=== PATIENT | male | born 1970 | race Two or more races ===

== ENCOUNTER 2017-02-17 14:49 | Emergency (ER) | payer SELFPAY ==
[2017-02-17 15:23] VITALS: BP 87/57
--- NOTE | 2017-02-17 15:56 | CR ---
Clinical history: 46-year-old male left chest wall pain and cough. Interpretation: PA lateral chest films demonstrate reasonable inspiratory effort this obese patient. Ivelisse thorax unremarkable. Normal cardiac silhouette without cephalization of flow, signs of alveolar edema or dependent effusio n. No lung mass, hilar lymphadenopathy or focal lobar pneumonia. No atelectasis/collapse. No pneumothorax. CONCLUSION: No acute cardiopulmonary abnormality.
[2017-02-17 16:10] LABS: CHLORIDE,CL 104 mmol/L (101-111); SODIUM,NA 138 mmol/L (135-145)
--- NOTE | 2017-02-17 16:40 | EDM.PDOC ---
ED HPI GENERAL MEDICAL PROBLEM - General Chief Complaint: Back Pain or Injury Stated Complaint: CHEST,BACK,SEVERE PAINS, HARD TO BREATH, [id number] Time Seen by Provider: 02/17/17 16:38 Source of Information: Reports: Patient, RN, RN Notes Reviewed History Limitations: Reports: No Limitations - History of Present Illness Onset: Today, Sudden Location: Reports: Chest, Back Quality: Reports: Sharp Severity: Moderate Improves with: Reports: None Worsens with: Reports: Movement Associated Symptoms: Reports: No Other Symptoms Left Back Pain Score (Numeric/FACES): 5 - Related Data Allergies Allergy/AdvReac Type Severity Reaction Status Date / Time Penicillins Allergy Cannot Verified 02/17/17 15:15 Remember Home Meds: Home Meds . [No Known Home Meds] 02/17/17 [History] Past Medical History - Past Health History Medical/Surgical History: Denies Medical/Surgical History Social & Family History - Tobacco Use Smoking Status *Q: Current Every Day Smoker Years of Tobacco use: 30 Packs/Tins Daily: 0.5 Used Tobacco, but Quit: No - Caffeine Use Caffeine Use: Reports: Coffee - Recreational Drug Use Recreational Drug Use: Yes Drug Use in Last 12 Months: No ED ROS GENERAL - Review of Systems Review Of Systems: ROS reveals no pertinent complaints other than HPI. ED EXAM, GENERAL - Physical Exam Exam: See Below Exam Limited By: No Limitations General Appearance: Alert, WD/WN, No Apparent Distress Eye Exam: Bilateral Eye: Normal Inspection Ears: Normal External Exam, Normal Canal, Hearing Grossly Normal, Normal TMs Nose: Normal Inspection, Normal Mucosa, No Blood Throat/Mouth: Normal Inspection, Normal Lips, Normal Teeth, Normal Gums, Normal Oropharynx, Normal Voice, No Airway Compromise Head: Atraumatic, Normocephalic Neck: Normal Inspection, Supple, Non-Tender, Full Range of Motion Respiratory/Chest: No Respiratory Distress, Lungs Clear, Normal Breath Sounds, No Accessory Muscle Use, Chest Non-Tender Cardiovascular: Normal Peripheral Pulses, Regular Rate, Rhythm, No Edema, No Gallop, No JVD, No Murmur, No Rub Peripheral Pulses: 2+: Radial (L), Radial (R) GI/Abdominal: Normal Bowel Sounds, Soft, Non-Tender, No Organomegaly, No Distention, No Abnormal Bruit, No Mass (Male) Exam: Deferred Rectal (Males) Exam: Deferred Back Exam: Normal Inspection, Decreased Range of Motion, Paraspinal Tenderness ( thoracic) Extremities: Normal Inspection, Normal Range of Motion, Non-Tender, Normal Capillary Refill, No Pedal Edema Neurological: Alert, Oriented, Normal Cognition, Normal Gait, No Motor/Sensory Deficits Psychiatric: Normal Affect, Normal Mood Skin Exam: Warm, Dry, Intact, Normal Color, No Rash Lymphatic: No Adenopathy Course - Vital Signs Last Recorded V/S: Last Vital Signs Temp 98.6 F 02/17/17 15:19 Pulse 64 02/17/17 15:19 Resp 20 02/17/17 15:19 BP 87/57 L 02/17/17 15:19 Pulse Ox 10 L 02/17/17 15:19 - Orders/Labs/Meds Labs: Laboratory Tests 02/17/17 02/17/17 02/17/17 Range/Units 15:45 15:45 15:45 WBC 7.4 (5.0-10.0) 10^3/uL RBC 5.35 (4.6-6.2) 10^6/uL Hgb 16.1 (14.0-18.0) g/dL Hct 47.3 (40.0-54.0) % MCV 88.4 (80-100) fL MCH 30.1 (27.0-34.0) pg MCHC 34.0 (33.0-35.0) g/dL Plt Count 223 (150-450) 10^3/uL Neut % (Auto) 60.8 (42.2-75.2) % Lymph % (Auto) 26.6 (20.5-50.1) % Ector % (Auto) 9.9 H (2-8) % Eos % (Auto) 2.3 (1.0-3.0) % Baso % (Auto) 0.4 (0.0-1.0) % D-Dimer, Quantitative 210 (0-400) ng/mL Sodium 138 (135-145) mmol/L Potassium 4.2 (3.6-5.0) mmol/L Chloride 104 (101-111) mmol/L Carbon Dioxide 25.0 (21.0-31.0) mmol/L Anion Gap 13.2 BUN 18 (7-18) mg/dL Creatinine 1.2 (0.6-1.3) mg/dL Est Cr Clr Drug Dosing 83.67 mL/min Estimated GFR (MDRD) > 60 BUN/Creatinine Ratio 15.00 Glucose 81 (74-105) mg/dL Calcium 8.9 (8.4-10.2) mg/dl Total Bilirubin 0.4 (0.2-1.0) mg/dL AST 25 (10-42) IU/L ALT 24 (10-60) IU/L Alkaline Phosphatase 50 (42-121) IU/L Troponin I < 0.02 (0.00-0.02) ng/ml Total Protein 7.7 (6.7-8.2) g/dl Albumin 4.6 (3.2-5.5) g/dl Globulin 3.1 Albumin/Globulin Ratio 1.48 - Radiology Interpretation Free Text/Narrative:: chest xray: no acute cardiopulmonary abnormality See rad report Departure - Departure Time of Disposition: 16:49 Disposition: Home, Self-Care 01 Condition: Good Clinical Impression: Costochondral chest pain - Discharge Information Instructions: Muscle Strain, [id number], Back Pain, Adult, [id number] Forms: ED Department Discharge Additional Instructions: Deep breathe and cough frequently. Norflex 100mg orally twice daily as needed for back pain. Follow up with your primary care facility in 3-5 days.
== END 2017-02-17 17:00 | disposition home or self-care (01) ==
LOC: DL.ED 14:49
DX: R07.1 Chest pain on breathing (principal); F17.210 Nicotine dependence, cigarettes, uncomplicated; Z88.0 Allergy status to penicillin
CPT/HCPCS: 36415; 71020; 80053; 84484; 85025; 85379; 99283; 99284

== ENCOUNTER 2024-11-17 15:39 | Emergency (ER) | payer OTHER ==
[2024-11-17 15:49] VITALS: BP 135/103; PULSE 80
== END 2024-11-17 16:12 | disposition home or self-care (01) ==
LOC: DL.ED 15:39
DX: F41.9 Anxiety disorder, unspecified (principal); Z88.0 Allergy status to penicillin; Z79.899 Other long term (current) drug therapy
CPT/HCPCS: 99283